=== PATIENT | female | born 1995 | race Caucasian/White ===

== ENCOUNTER 2017-08-03 14:21 | Emergency (ER) | payer SELFPAY ==
[2017-08-03] MEDS ORDERED: LIDOCAINE 1% INJ (10 MG/ML) 10 ML MDV INJ ONE (15:26)
[2017-08-03] MEDS ORDERED: BUPIVACAINE HCL 0.5 % INJ/PF 30 ML SDV INJ ONE (15:26)
--- NOTE | 2017-08-03 15:29 | ER Document Report ---
ED Oral Problem - General Chief Complaint: Toothache Stated Complaint: TOOTH PAIN Time Seen by Provider: 08/03/17 15:07 Mode of Arrival: Ambulatory Information source: Patient TRAVEL OUTSIDE OF THE [place] IN LAST 30 DAYS: No - HPI Patient complains to provider of: Toothache Notes: Patient is here with complaints of left lower dental pain. States that she has seen a dentist for her left lower first molar twice in an attempt to have 2 root canals done. She states that she was not able to have a successful root canal done. She now complains of worsening pain in this area. No fever or swelling. No drainage. No difficulty breathing or swallowing. No nausea, vomiting, diarrhea. No rash. No headache. No numbness, tingling, weakness. She denies any further complaints at this time. - Related Data Allergies/Adverse Reactions: No Known Allergies Allergy (Verified 08/03/17 14:25) Past Medical History - Social History Smoking Status: Current Every Day Smoker Family History: Reviewed & Not Pertinent Review of Systems - Review of Systems -: Yes All other systems reviewed and negative Physical Exam - Notes Notes: GENERAL: alert, cooperative, nontoxic, no distress. HEAD: normocephalic, atraumatic EYES: conjunctiva pink without discharge, no external redness or swelling. EARS: no external swelling, no external redness NOSE: atraumatic, no external swelling MOUTH/THROAT: mucous membranes moist and pink. Large crack in the lateral aspect of the left lower first molar. No gum swelling. No drainage. No sublingual swelling or induration. No trismus or drooling. No stridor. NECK: soft, supple, full range of motion, no meningismus. CHEST: no distress, lungs clear and equal throughout. No wheezing, rales, rhonchi. CARDIAC: regular rate and rhythm, no murmur, normal capillary refill, normal pulses. BACK: full range of motion, no CVA tenderness. EXTREMITIES: full range of motion of all extremities. No redness, no swelling. NEURO: alert and oriented 3, no focal deficits, full range of motion of all extremities. PYSCH: appropriate mood, affect. Patient is cooperative. SKIN: pink, warm, dry, no rash. Course - Re-evaluation Re-evalutation: 08/03/17 15:39 Patient is nontoxic appearing with stable vitals. She is here with complaints of left lower dental pain. She is noted to have a large crack in this tooth. There is no gum swelling. There is no sublingual swelling. No sign of David' s angina. She is in no significant distress. Performed a dental block with bupivacaine and lidocaine. The patient states that she has significant relief of her pain with this procedure. Patient will be discharged home with Pen-Savi K , and Ultram. She is instructed to follow-up with her dentist at the next available appointment, sooner for worsening pain, fever, numbness, tingling, weakness, swelling, difficulty breathing or swelling, or for any further concerns. The patient's emergency department workup and current diagnosis were explained to the patient and or family. Follow-up instructions were provided. Medications if prescribed were discussed. Instructions for when to return to the emergency department including specific worrisome symptoms were discussed with the patient and/or family. Discharge - Discharge Clinical Impression: Pain, dental Condition: Stable Disposition: HOME, SELF-CARE Instructions: [facility], Oral Narcotic Medication ([facility]), Toothache ([facility]), Penicillin V K ([facility]), Dentist Additional Instructions: Take medication as prescribed. He can take 1000 mg of Tylenol every 6 hours and 600 mg of ibuprofen every 6 hours as needed for pain as well. Do not exceed these dosings. Follow-up with your dentist at the next available appointment. Follow-up sooner for worsening pain, fever, difficulty breathing or swallowing, or for any further concerns. The medication you were prescribed today may cause drowsiness. Do not drive or operate heavy machinery while taking this medication. Prescriptions: Tramadol HCl [Ultram 50 mg Tablet] 50 mg PO Q6HP PRN #9 tablet PRN Reason: Penicillin V Potassium [Penicillin Vk 500 mg Tablet] 500 mg PO BID #20 tablet Forms: Smoking Cessation Education Referrals: [facility] [Provider Group] - Follow up as needed [facility] [Provider Group] - Follow up as needed
[2017-08-03 15:47] VITALS: BP 118/73
== END 2017-08-03 15:48 | disposition home or self-care (01) ==
LOC: ER 14:21
DX: K08.9 Disorder of teeth and supporting structures, unspecified (principal); F17.200 Nicotine dependence, unspecified, uncomplicated
CPT/HCPCS: 99282; J3490